=== PATIENT | female | born 1940 | race Caucasian/White ===

== ENCOUNTER 2016-11-08 12:56 | Day surgery (SDC) | payer MEDICARE, OTHER ==
[~2016-11-08 12:56] MED LIST: CLOP75 PO; COLE625 PO; ESZO2 PO; RAMI10CA35 PO; TOPR50TA PO; VENL37.5 PO; ZETI10TA5 PO; [UNRECOGNIZED DRUG - CODE] PO
--- NOTE | 2016-11-08 14:14 | RADRPT ---
EXAM DATE/TIME: 11/08/2016 13:36 [place] COMPARISON: No previous studies available for comparison. EXTERNAL COMPARISON: [facility], US THYROID , Oct 15 2016. INDICATIONS : Right thyroid nodule. MEDICAL HISTORY : Myocardial infarction. Hypercholesterolemia. Arthritis. Carcinoma, bladder. Chronic pancreatitis. CVA . Migraines. Coronary artery disease. Chest pain. HTN. Irregular heartbeat. Anticoagulant therapy, Pl avix. SURGICAL HISTORY : Tonsillectomy. Cholecystectomy. Hysterectomy. Bilateral cataract. Cardiac cath. TURBT. Blood transfus ions. Left carotid endarterectomy. ENCOUNTER: Initial ACUITY: 1 month PAIN SCORE: 0/10 LOCATION: Right neck ORGAN: Right thyroid lobe SPECIMENS: Four fine needle aspirate(s) submitted for pathologic evaluation. DEVICE: 22 gauge needle Post procedure scanning reveals no hematoma or other complication. The possibility does exist that the tissue obtained will be non-diagnostic. If the sample is non-anayeli gnostic a repeat biopsy or surgical biopsy may need to be performed. TECHNIQUE: 1. Ultrasound guidance for needle biopsy. 2. Needle biopsy. The risks, benefits and alternatives to the procedure were explained and verbal and written consent w as obtained. The site was prepped in sterile fashion. Full sterile technique was used, including ca p, mask, sterile gloves and gown and a large sterile sheet. Hand hygiene and 2% chlorhexidine and/or betadine/alcohol prep was utilized per protocol for cutaneous antisepsis. The skin and subcutaneous tissues were infiltrated with local anesthetic solution. Sterile gel and sterile probe cover were u tilized for ultrasound guidance. With the patient on the ultrasound table, images were obtained. A needle was advanced into the identified target and the number of specimens as above obtained and javier bmitted for pathologic evaluation. The patient tolerated the procedure well and left the ultrasound suite in stable condition. CONCLUSION: Uncomplicated ultrasound guided needle biopsy. Enrico Magallanes MD on November 08, 2016 at 14:12 Board Certified Radiologist. This report was verified electronically.
[2016-11-08 14:15] VITALS: BP 189/85; PULSE 61; RESP 18; O2SAT 97
[2016-11-08] MEDS ORDERED: LIDOCAINE HCL 1% 20 ML VIAL ONE (14:18)
[2016-11-08 14:34] VITALS: BP 174/79; PULSE 61; RESP 14; O2SAT 99
== END 2016-11-08 14:45 | disposition home or self-care (01) ==
LOC: HRAD 12:56 → HRIP 12:57 → HRAD 14:45
PROVIDERS: ATTEND Family Medicine
DX: E04.1 Nontoxic single thyroid nodule (principal); I25.2 Old myocardial infarction; E78.00 Pure hypercholesterolemia, unspecified; K86.1 Other chronic pancreatitis; I10 Essential (primary) hypertension; I49.9 Cardiac arrhythmia, unspecified; R07.9 Chest pain, unspecified; Z79.01 Long term (current) use of anticoagulants; Z85.51 Personal history of malignant neoplasm of bladder
CPT/HCPCS: 10022; 76942; 88172; 88173